=== PATIENT | male | born 1990 | race Caucasian/White ===

== ENCOUNTER 2017-05-25 12:55 | Emergency (ER) | payer BC ==
--- NOTE | 2017-05-25 14:08 | EDM.PDOC ---
ED HPI GENERAL MEDICAL PROBLEM - General Chief Complaint: ENT Problem Stated Complaint: SWOLLEN THROAT Time Seen by Provider: 05/25/17 14:20 Source of Information: Reports: Patient, RN Notes Reviewed History Limitations: Reports: No Limitations - History of Present Illness INITIAL COMMENTS - FREE TEXT/NARRATIVE: The patient states that he is visiting from [place], [place], for 2 weeks. He reports that he has had swollen glands, a cough productive of yellow sputum, and a sore throat for the past 4-5 days. No recent fever, vomiting, constipation , or diarrhea, although he states that he has had some nausea. He also reports and increased heart rate that may be related to anxiety. He also reports that his right upper wisdom tooth may have ruptured. He has not seen a dentist about this. We were notified that the patient brought a friend of his to this ED yesterday for methamphetamine intoxication. The patient and his friend were then found checking peoples cars out in our parking lot by another patient. When she asked them to step away from her car, they were hostile. She then notified the ED staff, who called the police. The police have since checked the patient and his friend out, finding no warrants. The patient admits to me that he drinks approximately 1. of alcohol daily, occasionally uses marijuana, injects heroin, with his last used 12/31/2016, occasionally snorts or injects cocaine, with his last use 4 days ago, and occasionally snorts or injects methamphetamine, with his last use 4 days ago. He states that he has been in treatment while in [place] [facility], but no private drug or alcohol treatment, and he has never attended outpatient treatment for drug or alcohol abuse. The patient states that he may have a PCP in [place]. Treatments SPIRITS MODEL: Reports: Other (see below) Other Treatments SPIRITS MODEL: none Throat Pain Score (Numeric/FACES): 6 Past Medical History - Infectious Disease History Infectious Disease History: Reports: Hepatitis C - Past Surgical History Musculoskeletal Surgical History: Reports: Other (See Below) (Right triceps repair) Social & Family History - Tobacco Use Smoking Status *Q: Current Every Day Smoker Years of Tobacco use: 13 Packs/Tins Daily: 1.5 - Caffeine Use Caffeine Use: Reports: Soda - Alcohol Use Alcohol Use History: Yes Days Per Week of Alcohol Use: 7 Number of Drinks Per Day: 11 Total Drinks Per Week: 77 Alcohol Use Frequency: Daily - Recreational Drug Use Recreational Drug Use: Yes Drug Use in Last 12 Months: Yes Recreational Drug Type: Reports: Cocaine (snorts or injects, last = 05/21/17), Heroin (injected, last = 12/31/16), Methamphetamine (snorts or injects, last = ) - Living Situation & Occupation Living situation: Reports: (), Alone Occupation: Employed ([employer]) ED ROS GENERAL - Review of Systems Review Of Systems: See Below Constitutional: Reports: Chills HEENT: Reports: No Symptoms Respiratory: Reports: No Symptoms Cardiovascular: Reports: No Symptoms Endocrine: Reports: No Symptoms GI/Abdominal: Reports: No Symptoms : Reports: No Symptoms Musculoskeletal: Reports: No Symptoms Skin: Reports: No Symptoms Neurological: Reports: No Symptoms Psychiatric: Reports: No Symptoms Hematologic/Lymphatic: Reports: No Symptoms Immunologic: Reports: No Symptoms ED EXAM, GENERAL - Physical Exam Exam: See Below Exam Limited By: No Limitations General Appearance: Alert, WD/WN, No Apparent Distress Eye Exam: Bilateral Eye: Normal Inspection Ears: Normal External Exam, Hearing Grossly Normal Nose: Normal Inspection, No Blood Throat/Mouth: Normal Lips, Normal Teeth, Normal Gums, Normal Voice, No Airway Compromise, Other (Dry oral mucosa. Posterior oropharyngeal erythema. Possible aphthous ulcers on the soft palate.) Head: Atraumatic, Normocephalic Neck: Normal Inspection, Supple, Non-Tender, Full Range of Motion, Lymphadenopathy (L) (slight). No: Lymphadenopathy (R) Respiratory/Chest: No Respiratory Distress, Lungs Clear, Normal Breath Sounds, No Accessory Muscle Use Cardiovascular: Normal Peripheral Pulses, Regular Rate, Rhythm, No Gallop, No JVD, No Murmur, No Rub Peripheral Pulses: 4+: Radial (L), Radial (R) GI/Abdominal: Normal Bowel Sounds, Soft, Non-Tender, No Organomegaly, No Distention, No Abnormal Bruit, No Mass (Male) Exam: Deferred Rectal (Males) Exam: Deferred Back Exam: Normal Inspection, Full Range of Motion, NT Extremities: Normal Inspection, Normal Range of Motion, No Pedal Edema, Normal Capillary Refill Neurological: Alert, Oriented, Normal Cognition, No Motor/Sensory Deficits Psychiatric: Other (Somewhat agitated, with rapid speech) Skin Exam: Warm, Dry, Intact, Normal Color, No Rash Course - Vital Signs Last Recorded V/S: Last Vital Signs Temp 36.4 C 05/25/17 13:04 Pulse 89 05/25/17 13:04 Resp 20 05/25/17 13:04 BP 152/92 H 05/25/17 13:04 Pulse Ox 100 05/25/17 13:04 - Orders/Labs/Meds Orders: Active Orders 24 hr Category Date Time Status CULTURE STREP A CONFIRMATION [RM] Stat Lab 05/25/17 14:05 Results STREP SCRN A RAPID W CULT CONF [RM] Stat Lab 05/25/17 14:05 Results - Re-Assessments/Exams Free Text/Narrative Re-Assessment/Exam: 05/25/17 14:50 Test results discussed with the patient. Today's rapid strep test is negative. The patient appears to have viral pharyngitis with possible aphthous stomatitis. As per the physical exam, his oral mucosa appears to be dry, possibly secondary to methamphetamine use. I am recommending the patient consider drug and alcohol treatment, and I will refer him to Dr. Sanchez. Departure - Departure Time of Disposition: 14:51 Disposition: Home, Self-Care 01 Condition: Good Clinical Impression: Viral URI with cough, Pharyngitis, Polysubstance abuse - Discharge Information Instructions: Pharyngitis, [id number] Referrals: PCP,Amanda [Primary Care Provider] - India Sanchez [Physician] - Forms: ED Department Discharge Additional Instructions: You were seen in the emergency room for swollen glands, a cough, sore throat, and nausea. Workup in the ER included a rapid strep test, which returned as negative. You appear to have a viral URI and pharyngitis. Your sore throat may be caused by canker sores. Treatment options include Chloraseptic [place], warm saltwater gargles, Tylenol, or ibuprofen. You may follow-up with Dr. Sanchez in the clinic, as needed. We STRONGLY recommend you seek professional drug and alcohol treatment at [facility]: [address] [place] If any other problems, please do not hesitate to return to the ER. - My Orders Last 24 Hours: My Active Orders 05/25/17 14:05 CULTURE STREP A CONFIRMATION [RM] Stat STREP SCRN A RAPID W CULT CONF [RM] Stat - Assessment/Plan Last 24 Hours: My Active Orders 05/25/17 14:05 CULTURE STREP A CONFIRMATION [RM] Stat STREP SCRN A RAPID W CULT CONF [RM] Stat
== END 2017-05-25 15:11 | disposition home or self-care (01) ==
LOC: JD.ED 12:55
DX: J02.9 Acute pharyngitis, unspecified (principal); F19.10 Other psychoactive substance abuse, uncomplicated; F17.210 Nicotine dependence, cigarettes, uncomplicated
CPT/HCPCS: 87081; 87430; 99283